=== PATIENT | female | born 1995 | race Caucasian/White ===

== ENCOUNTER 2017-04-01 13:22 | Inpatient (IN) | payer OTHER ==
[2017-04-01] MEDS ORDERED: LACTATED RINGERS 1,000 ML ONE (15:44)
[2017-04-01] MEDS ORDERED: MINERAL OIL PO PRN (16:17)
[2017-04-01] MEDS ORDERED: SUBLIMAZE IV PRN (16:17)
[2017-04-01] MEDS ORDERED: BRETHINE SUB-Q PRN (16:17)
[2017-04-01] MEDS ORDERED: BRETHINE IVP PRN (16:17)
[2017-04-01] MEDS ORDERED: ePHEDrine SULFATE IV PRN ×2 (16:17→20:26)
[2017-04-01] MEDS ORDERED: XYLOCAINE 2% INFILTRATI ONE (16:17)
--- NOTE | 2017-04-01 16:17 | History and Physical Report ---
History of Present Illness Date of examination: 04/01/17 Chief complaint: Ruptured membranes History of present illness: 21-year-old at 39+2 weeks presents in active labor, she is a [facility] patient. care has been unremarkable, she is GBS negative Past History Past Medical History: no pertinent history Past Surgical History: MANAGER INVENTORY MANAGEMENT/uterine surgery (D&C) MANAGER INVENTORY MANAGEMENT History: denies: cancer, chlamydia, fibroids, gonorrhea, hepatitis B, hepatitis C, herpes, HIV, syphilis Social history: , full code. denies: smoking, alcohol abuse, prescription drug abuse, IV drug use - Obstetrical History Expected Date of Delivery: 04/06/17 Actual Gestation: 39 Week(s) 2 Day(s) : 3 Para: 1 Medications and Allergies Allergies Allergy/AdvReac Type Severity Reaction Status Date / Time No Known Allergies Allergy Verified 04/01/17 14:03 Review of Systems Constitutional: no fever, no chills, no sweats, no weakness Cardiovascular: no chest pain, no palpitations, no edema, no syncope, no lightheadedness, no shortness of breath, no dyspnea on exertion, no high blood pressure Respiratory: no shortness of breath, no dyspnea on exertion Gastrointestinal: abdominal pain (Painful contractions), no nausea, no vomiting Genitourinary: leakage of fluid, no vaginal bleeding, no vaginal discharge - Vital Signs Vital signs: Vital Signs Pulse BP 76 116/70 04/01/17 13:46 04/01/17 13:46 Temp Pulse Resp BP Pulse Ox 98.5 F 76 20 116/70 98 04/01/17 14:32 04/01/17 14:32 04/01/17 14:32 04/01/17 14:32 04/01/17 13:58 - Physical Exam Cardiovascular: Regular rate, Normal S1, Normal S2 Lungs: Positive: Clear to auscultation, Normal air movement Abdomen: Positive: normal appearance, soft. Negative: distention, tenderness, guarding, rigidity Genitourinary (Female): Positive: normal external genitalia Uterus: Positive: enlarged (EFW ~ 3600) Adnexa: both: normal Extremities: Positive: normal - Obstetrical FHR: category 1 Cervical Dilatation: 3 (Per RN exam) Results All other labs normal. Assessment and Plan A: 21-year-old at 39+ weeks presents in active labor -Cat 1 tracing -s/p SROM P: -Admit -Obtain routine labs -Epidural prn -Anticipate - Patient Problems (1) 39 weeks gestation of Current Visit: Yes Status: Acute (2) Active labor at term Current Visit: Yes Status: Acute
[2017-04-01 16:24] LABS: Hematocrit 30.2 % (30.3-42.9); Hemoglobin 9.9 gm/dl (10.1-14.3); Mean Corpuscular HGB Conc 33 % (30-34); Mean Corpuscular Hemoglobin 28 pg (28-32); Mean Corpuscular Volume 85 fl (79-97); Platelet Count 298 K/mm3 (140-440); Red Blood Count 3.54 M/mm3 (3.65-5.03); Red Cell Distribution Width 14.1 % (13.2-15.2); White Blood Count 10.2 K/mm3 (4.5-11.0)
[2017-04-01] MEDS ORDERED: LACTATED RINGERS 1,000 ML IV SCH (17:00)
[2017-04-01] MEDS ORDERED: PITOCin/NS 20 UNIT/1000ML DRIP 20 UNITS/1,000 ML BAG IV SCH ×2 (17:00→22:00)
[2017-04-01] MEDS ORDERED: PITOCin/NS 30 UNIT/500ML 30 UNITS/500 ML BAG IV SCH ×2 (17:00)
[2017-04-01] MEDS ORDERED: ePHEDrine SULFATE ONE (19:27)
[2017-04-01] MEDS ORDERED: NARCAN 2 MG/2 ML IV PRN (20:26)
--- NOTE | 2017-04-01 20:27 | Anesthesia Consultation ---
Anesthesia Consult and Med Hx Date of service: 04/01/17 - Airway Anesthetic Teeth Evaluation: Good ROM Head & Neck: Adequate Mental/Hyoid Distance: Adequate Mallampati Class: Class II Intubation Access Assessment: Probably Good - Pulmonary Exam CTA: Yes - Cardiac Exam Cardiac Exam: RRR - Pre-Operative Health Status ASA Pre-Surgery Classification: ASA2 Proposed Anesthetic Plan: Epidural, Spinal - Pulmonary Hx Asthma: No COPD: No Hx Pneumonia: No - Cardiovascular System Hx Hypertension: No - Central Nervous System Hx Seizures: No Hx Psychiatric Problems: No - Endocrine Hx Renal Disease: No Hx End Stage Renal Disease: No Hx Hypothyroidism: No Hx Hyperthyroidism: No - Hematic Hx Anemia: No Hx Sickle Cell Disease: No - Other Systems Hx Alcohol Use: No - Additional Comments Anesthesia Medical History Comments: +IUP
[2017-04-01] MEDS ORDERED: fentaNYL-BUPIV 2 MCG/ML-0.125% 200 MCG/100 ML BAG EPIDURAL ONE (20:31)
[2017-04-01] MEDS ORDERED: fentaNYL-BUPIV 2 MCG/ML-0.125% 200 MCG/100 ML BAG EPIDURAL SCH (21:00)
--- NOTE | 2017-04-01 21:50 | Procedure Note ---
OB Delivery Note - Delivery Date of Delivery: 04/01/17 Surgeon: LUCY TUCKER Estimated blood loss: 200cc - Vaginal Delivery presentation: vertex, compound ( right arm) Delivery position: OA Intrapartum events: none Delivery induction: none Delivery augmentation: pitocin Delivery monitor: external FHT, external uterine Route of delivery: Delivery placenta: spontaneous Delivery cord: 3 umbilical vessels Episiotomy: none Delivery laceration: 1st degree Delivery repair: vicryl Anesthesia: epidural - Infant A at 1 minute: 9 at 5 minutes: 9 Gender: Female (Del @ 21:35, weight is 7#2 or 3219 g)
[2017-04-01] MEDS ORDERED: ZOFRAN IV PRN (21:52)
[2017-04-01] MEDS ORDERED: DULCOLAX PR PRN (21:52)
[2017-04-01] MEDS ORDERED: DERMOPLAST TP PRN (21:52)
[2017-04-01] MEDS ORDERED: PHENERGAN PO PRN (21:52)
[2017-04-01] MEDS ORDERED: LANSINOH TP PRN (21:52)
[2017-04-01] MEDS ORDERED: BENADRYL PO PRN (21:52)
[2017-04-01] MEDS ORDERED: PHENERGAN PR PRN (21:52)
[2017-04-01] MEDS ORDERED: TYLENOL PO PRN (21:52)
[2017-04-01] MEDS ORDERED: TUCKS PAD TP PRN (21:52)
[2017-04-01] MEDS ORDERED: MILK OF MAGNESIA PO PRN (21:52)
[2017-04-01] MEDS ORDERED: NORCO 5/325 PO PRN (21:52)
[2017-04-01] MEDS ORDERED: ANUCORT-HC PR PRN (21:52)
[2017-04-01] MEDS ORDERED: METHERGINE IM PRN (21:55)
[2017-04-01] MEDS ORDERED: SENOKOT S PO SCH (22:00)
[2017-04-01] MEDS ORDERED: SODIUM CHLORIDE FLUSH SYRINGE 10 ML IV NR (22:00)
[2017-04-01] MEDS ORDERED: ZOFRAN IM ONE (23:22)
[2017-04-01 23:59] LABS: Basophils % (Auto) 0.3 % (0.0-1.8); Eosinophils % (Auto) 0.1 % (0.0-4.3); Hematocrit 29.4 % (30.3-42.9); Mean Corpuscular HGB Conc 34 % (30-34); Mean Corpuscular Hemoglobin 29 pg (28-32); Mean Corpuscular Volume 85 fl (79-97); Platelet Count 270 K/mm3 (140-440); Red Blood Count 3.47 M/mm3 (3.65-5.03); Red Cell Distribution Width 14.1 % (13.2-15.2); White Blood Count 15.2 K/mm3 (4.5-11.0)
[2017-04-02 00:18] LABS: HIV-1 Antigen p24 Non React (Non React); HIVR-1/2 Ab Non React (Non React)
[2017-04-02] MEDS: MOTRIN PO SCH ×4 (00:46→19:03)
--- NOTE | 2017-04-02 06:29 | Progress Note ---
Assessment and Plan PPD # 1 s/p -Doing well P: -Routine care -Anticipate discharge in 24-48 hours - Patient Problems (1) (normal spontaneous vaginal delivery) Current Visit: Yes Status: Acute (2) 39 weeks gestation of Current Visit: Yes Status: Acute (3) Active labor at term Current Visit: Yes Status: Acute Subjective - Subjective Date of service: 04/02/17 Principal diagnosis: PPD# 1 Interval history: Seen and examined, stable doing well with no issues Patient reports: appetite normal, voiding normally, pain well controlled, flatus , ambulating normally, no dizzy ambulation, no nauseated [place]: doing well Objective - Vital Signs Latest vital signs: Vital Signs Temp Pulse Pulse Resp BP BP Pulse Ox 04/02/17 00:35 99 F 74 20 135/70 04/01/17 23:30 98.5 F 80 18 121/81 95 04/01/17 22:49 67 98 04/01/17 22:48 80 121/81 04/01/17 22:44 85 98 04/01/17 22:39 68 98 04/01/17 22:34 75 98 04/01/17 22:33 98.2 F 83 91 H 18 120/72 120/72 98 04/01/17 22:29 79 98 04/01/17 22:24 83 98 04/01/17 22:19 89 98 04/01/17 22:18 98.5 F 86 95 H 18 123/77 123/77 86 04/01/17 22:14 101 H 98 04/01/17 22:09 96 H 98 04/01/17 22:04 99 H 99 04/01/17 22:03 98.3 F 99 H 86 18 112/67 112/67 99 04/01/17 21:59 87 98 04/01/17 21:54 90 98 04/01/17 21:49 98.4 F 89 79 18 112/59 98 04/01/17 21:47 98 H 112/59 04/01/17 21:44 99 H 98 04/01/17 21:39 119 H 98 04/01/17 21:34 85 98 04/01/17 21:29 89 98 04/01/17 21:24 87 98 04/01/17 21:19 88 98 04/01/17 21:17 94 H 106/55 04/01/17 21:14 94 H 98 04/01/17 21:09 101 H 98 04/01/17 21:04 83 99 04/01/17 20:59 81 99 04/01/17 20:54 97 H 98 04/01/17 20:49 89 98 04/01/17 20:44 88 98 04/01/17 20:39 93 H 98 04/01/17 20:34 108 H 98 04/01/17 20:31 93 H 134/77 04/01/17 20:29 126 H 135/109 98 04/01/17 20:27 116 H 115/69 04/01/17 20:25 86 115/71 04/01/17 20:24 88 97 04/01/17 20:23 89 113/73 04/01/17 20:21 82 113/68 04/01/17 20:19 81 112/72 98 04/01/17 20:17 88 119/77 04/01/17 20:15 88 118/77 04/01/17 20:14 84 99 04/01/17 20:13 87 116/70 04/01/17 20:09 95 H 99 04/01/17 20:03 86 97 04/01/17 19:58 81 96 04/01/17 19:53 66 97 04/01/17 19:48 71 97 04/01/17 19:43 75 96 04/01/17 19:38 70 97 04/01/17 19:36 62 119/73 04/01/17 19:33 71 96 04/01/17 19:28 68 96 04/01/17 19:25 74 94 04/01/17 19:23 71 95 04/01/17 19:19 97.8 F 71 18 118/65 95 04/01/17 19:18 71 95 04/01/17 19:16 83 94 04/01/17 19:13 74 94 04/01/17 19:10 82 94 04/01/17 19:08 99 H 99 04/01/17 19:07 20 04/01/17 19:06 82 118/65 04/01/17 19:03 95 H 99 04/01/17 18:58 73 99 04/01/17 18:53 85 98 04/01/17 18:48 99 H 99 04/01/17 18:43 73 97 04/01/17 18:38 86 97 04/01/17 18:36 82 109/64 04/01/17 18:33 89 97 04/01/17 18:28 76 97 04/01/17 18:23 85 97 04/01/17 18:18 87 96 04/01/17 18:13 107 H 98 04/01/17 18:08 92 H 97 04/01/17 18:06 87 105/63 04/01/17 18:03 81 98 04/01/17 17:58 82 97 04/01/17 17:53 84 97 04/01/17 17:48 78 98 04/01/17 17:43 94 H 98 04/01/17 17:38 110 H 123/79 99 04/01/17 17:33 88 98 04/01/17 17:28 84 98 04/01/17 17:23 96 H 98 04/01/17 17:18 83 98 04/01/17 17:13 75 99 04/01/17 17:08 80 97 04/01/17 17:06 70 118/73 04/01/17 17:03 84 97 04/01/17 16:58 83 97 04/01/17 16:53 72 98 04/01/17 16:30 96.9 F L 77 20 117/59 04/01/17 14:32 98.5 F 76 20 116/70 04/01/17 13:58 79 98 04/01/17 13:46 76 116/70 Intake and Output 04/01/17 04/01/17 04/02/17 14:59 22:59 06:59 Intake Total 245 Output Total 300 Balance -300 245 Intake: IV 125 PITOCin/NS 20 UNIT/1000ML 125 DRIP 20 units In 1,000 ml @ 250 mls/hr IV DIRECT [facility] Rx#:[id number] Intake, Free Water 120 Output: Urine 300 Void 300 Other: Total, Output Amount 300 Weight 84.368 kg Estimated Blood Loss 200 Patient Weight 04/02/17 06:59 Weight 84.368 kg - Exam Abdomen: Present: normal appearance, soft. Absent: distention, tenderness, guarding Uterus: Present: fundal height below umbilicus. Absent: tenderness Extremities: Present: normal - Labs Labs: Abnormal lab results 04/01/17 04/01/1704/01/17 Range/Units 16:09 23:10 23:10 WBC 15.2 H (4.5-11.0) K/mm3 RBC 3.54 L 3.47 L (3.65-5.03) M/mm3 Hgb 9.9 L 10.0 L (10.1-14.3) gm/dl Hct 30.2 L 29.4 L (30.3-42.9) % Lymph % (Auto) 8.5 L (13.4-35.0) % Seg Neutrophils % 87.1 H (40.0-70.0) % Seg Neutrophils # 13.3 H (1.8-7.7) K/mm3 HCG, Quant 3010 H (0-4) mIU/mL
--- NOTE | 2017-04-02 06:30 | Discharge Summary ---
Providers - Providers Date of Admission: 04/01/17 16:17 Date of discharge: 04/03/17 Attending physician: LUCY TUCKER Primary care physician: LUCY TUCKER Hospitalization Reason for admission: active labor, rupture of membranes Delivery: Episiotomy: none Laceration: 1st degree Incision: dry, intact Other procedures: none complications: none Discharge diagnosis: IUP at term delivered [place] baby: female Hospital course: Uncomplicated hospital course Condition at discharge: Good Disposition: DISCHARGED TO HOME OR SELFCARE - Discharge Diagnoses (1) (normal spontaneous vaginal delivery) Status: Acute (2) 39 weeks gestation of Status: Acute (3) Active labor at term Status: Acute Plan - Discharge Medications Prescriptions: HYDROcodone/APAP 5-325 [[place] 5/325] 1 each PO Q6HR PRN #10 tablet PRN Reason: Pain Ibuprofen [Motrin 600 MG tab] 600 mg PO Q8H PRN #30 tablet PRN Reason: Pain Multivitamin with Iron [Multivitamins with Iron] 1 each PO DAILY #30 tablet - Provider Discharge Summary Activity: no sex for 6 weeks, no strenuous exercise, other Additional instructions: [] Smoking cessation referral if applicable(refer to patient education folder for contact #) [] Refer to [facility] Booklet Call your doctor immediately for: * Fever > 100.5 * Heavy vaginal bleeding ( >1 pad per hour) * Severe persistent headache * Shortness of breath * Reddened, hot, painful area to leg or breast * Drainage or odor from incision. * Keep incision clean and dry at all times and follow doctor's instructions regarding bathing/showering - Follow up plan Follow up: LUCY TUCKER MD [Primary Care Provider] - 6 Weeks
[2017-04-02 09:59] LABS: Hematocrit 28.9 % (30.3-42.9); Hemoglobin 9.5 gm/dl (10.1-14.3)
[2017-04-02] MEDS ORDERED: PRENATAL VITAMIN PO SCH (10:00)
[2017-04-02] MEDS: FEOSOL PO SCH ×2 (12:32→22:50)
[2017-04-02] MEDS: COLACE PO SCH ×2 (12:33→22:50)
[2017-04-03] MEDS: MOTRIN PO SCH (01:00)
[2017-04-03 13:26] VITALS: BP 106/57
== END 2017-04-03 14:05 | disposition home or self-care (01) | DRG 775 ==
LOC: TRG 13:22 → LD 16:17 → OB 04-02 00:33
PROVIDERS: ADMIT Obstetrics & Gynecology Gynecology; ATTEND Obstetrics & Gynecology Gynecology
PROC: 10E0XZZ Delivery of Products of Conception, External Approach (ICD-10-PCS; principal; 2017-04-01)
PROC: 00HU33Z Insertion of Infusion Device into Spinal Canal, Percutaneous Approach (ICD-10-PCS; 2017-04-01)
PROC: 3E0R3CZ (ICD-10-PCS; 2017-04-01)
PROC: 0HQ9XZZ Repair Perineum Skin, External Approach (ICD-10-PCS; 2017-04-01)
DX: O70.0 First degree perineal laceration during delivery (principal); Z3A.39 39 weeks gestation of pregnancy; Z37.0 Single live birth
CPT/HCPCS: 36415; 84702; 85014; 85018; 85025; 85027; 85660; 86592; 86706; 86762; 86803; 86850; 86900; 86901; 87806; 99211; G0463; J2210; J2405; J2590; J3010; J7120